=== PATIENT | male | born 1990 | race Caucasian/White ===

== ENCOUNTER 2024-09-09 09:18 | Emergency (ER) | payer BC ==
[~2024-09-09] VITALS: Ht 177.8 cm; Wt 104.0 kg
[2024-09-09 09:22] VITALS: O2SAT 100
[2024-09-09] MEDS: KETOROLAC 30MG/ML VIAL IM ONE (09:45)
[2024-09-09] MEDS: LORAZEPAM 2MG/ML INJ IM ONE (10:06)
[2024-09-09 10:32] LABS: BASOPHILS % 0.9 % (0.0-2.0); HEMATOCRIT. 43.3 % (42.0-52.0); HEMOGLOBIN. 15.2 g/dL (14.0-18.0); LYMPHOCYTES % 38.2 % (20.0-50.0); MEAN CORPUSCULAR HEMOGLOBIN 32.9 pg (28.0-32.0); MEAN CORPUSCULAR HGB CONC 35.2 g/dL (31.0-37.0); MEAN CORPUSCULAR VOLUME 93.5 fL (80.0-94.0); MEAN PLATELET VOLUME 10.4 fl (7.4-10.4); MONOCYTES % 8.2 % (2.0-8.0); NEUTROPHILS % 50.7 % (40.0-76.0); PLATELET 212 x1000/uL (130-400); RED BLOOD CELL COUNT 4.64 mill/uL (4.7-6.1); RED CELL DISTRIBUTION WIDTH 14.3 % (11.6-14.6); WHITE BLOOD COUNT 10.3 x1000/uL (4.5-11.0)
[2024-09-09 10:38] LABS: CHLORIDE 105 mEq/L (98-107); POTASSIUM 3.7 mEq/L (3.5-5.1); SODIUM 140 mEq/L (136-145)
[2024-09-09 10:39] LABS: CARBON DIOXIDE 21 mEq/L (21-32)
[2024-09-09 10:40] LABS: CALCIUM 9.7 mg/dL (8.7-10.4)
[2024-09-09] MEDS: LORAZEPAM 2MG/ML INJ IV ONE (10:43)
[2024-09-09] MEDS: DIPHENHYDRAMINE 50MG/ML VIAL IV ONE (10:43)
[2024-09-09 10:44] LABS: GLUCOSE 94 mg/dL (70-105); UREA NITROGEN BLOOD 12 mg/dL (9-23)
[2024-09-09 10:46] LABS: ALANINE AMINOTRANSFERASE 41 IU/L (10-49); ALBUMIN 4.3 g/dL (3.2-4.8); ASPARTATE AMINOTRANSFERASE 28 IU/L (<34)
[2024-09-09 10:47] LABS: BILIRUBIN TOTAL 0.6 mg/dL (0.1-1.0); PROTEIN TOTAL 7.3 g/dL (6.0-8.3)
[2024-09-09] MEDS: HALOPERIDOL LACTATE 5MG/ML VIAL IM ONE (10:53)
[2024-09-09 10:55] LABS: TROPONIN I HIGH SENSITIVITY < 4 ng/L (3.0-53)
[2024-09-09] MEDS: SODIUM CHLORIDE 0.9% 1,000 ML IV ONE (11:41)
[2024-09-09 14:00] VITALS: BP 122/78; PULSE 67; RESP 16; TEMP 37.1; O2SAT 99
== END 2024-09-09 14:18 | disposition home or self-care (01) ==
LOC: ER 09:18
DX: F43.0 Acute stress reaction (principal); F41.9 Anxiety disorder, unspecified
CPT/HCPCS: 80053; 85025; 84484; 36415; 71045; 96360; 96372; 99285; J1200; J1630; J1885; J2060; J7030; Z7610; A4606